=== PATIENT | male | born 1995 | race African-American/Black ===

== ENCOUNTER 2024-07-31 18:01 | Emergency (ER) | payer OTHER ==
[2024-07-31 18:15] VITALS: BP 130/82; PULSE 105; RESP 18; TEMP 97.5; BMI 25.1
[2024-07-31] MEDS ORDERED: KETOROLAC TROMETHAMINE 15 MG/ML VIAL ONE (19:12)
[2024-07-31] MEDS ORDERED: LIDOCAINE 4% PATCH TP ONE (19:12)
[2024-07-31] MEDS: KETOROLAC TROMETHAMINE 15 MG/ML VIAL IM ONE (19:59)
[2024-07-31] MEDS: LIDOCAINE 5% TOPICAL PATCH TP ONE (19:59)
[2024-07-31] MEDS ORDERED: LIDOCAINE PATCH REMOVAL MC SCH (22:00)
== END 2024-07-31 21:32 | disposition home or self-care (01) ==
LOC: JER 18:01 → JERFT 18:01
PROC: 3E0133Z Introduction of Anti-inflammatory into Subcutaneous Tissue, Percutaneous Approach (ICD-10-PCS; principal; 2024-07-31)
DX: M79.10 Myalgia, unspecified site (principal)
CPT/HCPCS: 99284-25

== ENCOUNTER 2025-03-21 10:02 | Emergency (ER) | payer OTHER ==
[2025-03-21 10:08] VITALS: BP 136/82; PULSE 83; RESP 20; TEMP 98.4; BMI 25.1
[2025-03-21] MEDS ORDERED: METHOCARBAMOL 500 MG TABLET ONE (10:42)
[2025-03-21] MEDS ORDERED: KETOROLAC TROMETHAMINE 30 MG/1 ML VIAL ONE (10:42)
[2025-03-21] MEDS ORDERED: ACETAMINOPHEN 500 MG TABLET (FP) ONE (10:42)
[2025-03-21] MEDS: METHOCARBAMOL 500 MG TABLET PO ONE (10:57)
[2025-03-21] MEDS: ACETAMINOPHEN 500 MG TABLET (FP) PO ONE (10:58)
[2025-03-21] MEDS: KETOROLAC TROMETHAMINE 30 MG/1 ML VIAL IM ONE (10:58)
== END 2025-03-21 11:44 | disposition home or self-care (01) ==
LOC: JERFT 10:02
PROC: 3E0233Z Introduction of Anti-inflammatory into Muscle, Percutaneous Approach (ICD-10-PCS; principal; 2025-03-21)
DX: S46.912A Strain of unspecified muscle, fascia and tendon at shoulder and upper arm level, left arm, initial encounter (principal); X50.0XXA Overexertion from strenuous movement or load, initial encounter; Y99.0 Civilian activity done for income or pay
CPT/HCPCS: 73030-TC-LT-FY; 99284-25